=== PATIENT | male | born 1960 | race Caucasian/White ===

== ENCOUNTER → 2018-07-01 14:35 | Outpatient (CLI) | payer BC, SELFPAY ==
--- NOTE | 2018-07-01 14:40 | DI.US.S_ITS ---
PROCEDURE: US ABDOMEN LIMITED INDICATIONS: abdominal mass TECHNIQUE: Real-time focused scanning was performed of the abdomen, with image documentation. COMPARISON: None. FINDINGS: There is a large right inguinal hernia identified that contains peristalsing bowel. The hernia sac measures at least 6.4 x 3.7 x 2.2 cm with an opening of approximately 9-10 mm. IMPRESSION: Large right inguinal hernia containing bowel. Dictated by: Axel Montano M.D. on 07/01/2018 at 15:00 Approved by: Axel Montano M.D. on 07/01/2018 at 15:01
== END ==
PROVIDERS: PCP Family Medicine; Visit Provider Physician Assistant
DX: K40.90 Unilateral inguinal hernia, without obstruction or gangrene, not specified as recurrent (principal)
CPT/HCPCS: 76705

== ENCOUNTER 2018-07-07 06:45 | Day surgery (SDC) | payer BC, SELFPAY ==
[2018-07-03 12:10] VITALS: BMI 25.7
[2018-07-07] VITALS (7 sets, daily range): BP systolic 104–139; BP diastolic 66–92; PULSE 84–93; RESP 14–20; TEMP 36.4–37; O2SAT 98–100; BMI 25.7
[2018-07-07] MEDS: LACTATED RINGERS 1,000 ML 42 ML IV (07:10)
--- NOTE | 2018-07-07 08:13 | PM.PREOP ---
Pre-operative Note Interval Note History & Physical reviewed/Exam performed by Physician: Yes Changes to H&P: No H&P completed within 30 days and has changed as indicated here:: Patient seen and examined in the preoperative area. Surgical site marked accordingly. No changes in recent history and physical examination done within the last 30 days. Proceed today with hernia repair as planned.
[2018-07-07] MEDS: CEFAZOLIN 2 GM/100 ML FROZ.PIGGY IV (09:20)
--- NOTE | 2018-07-07 09:55 | SUR.OPER ---
Supine on padded OR bed, head on pillow, arms secured on padded arm boards at <90 degrees abduction, legs uncrossed, safety belt at thigh, tape over blanket over lower legs.
[2018-07-07] MEDS: BUPIVACAINE 0.5% (PF) VIAL 30 ML INJ (10:00)
[2018-07-07] MEDS: LIDOCAINE 1% W/EPI INJ 20 ML INJ (10:00)
[2018-07-07] MEDS: SODIUM CHLORIDE IRRIG SOLUTION 1,000 ML, CEFAZOLIN VIAL 1 GM IRR (10:26)
--- NOTE | 2018-07-07 11:21 | PM.OP.1 ---
Operative Date/Time/Diagnoses Date of procedure: 07/07/18 Time of procedure: 11:21 Pre-op diagnosis: Symptomatic right inguinal hernia Post-op diagnosis: other (Symptomatic indirect right inguinal hernia with lipoma of the cord and small noncommunicating hydrocele) Procedure & Clinicians Procedure: Open right inguinal hernia repair with mesh Same procedure as scheduled: Yes Indications: 57-year-old male who presented with symptomatic painful right inguinal mass. Examination and evaluation were consistent with hernia. Repair was recommended. Surgeon: Familia Anguiano Click Yes if Unassisted: Yes Anesthesia Type: General Operative Notes Findings: 1. Lipoma of the right inguinal cord 2. Indirect right inguinal hernia with noncommunicating hydrocele Closure Type: primary Specimen(s): none sent Implants & Drains: None Estimated Blood Loss (mL): 10 Blood products transfused: none Procedure in detail: After obtaining informed consent the patient was brought to the operating room and placed supine on the table. After satisfactory induction of anesthesia the abdomen and genitalia were prepped and draped in usual sterile fashion. SCOAP time out was performed per standard protocol. Transverse incision was created across the lower aspect of the right inguinal canal for distance of approximately 3 or 4 cm then infiltrated with a 1-1 mixture 1% lidocaine with 1 :100,000 epinephrine 0.5% plain Marcaine for postoperative analgesia. Skin incision was created with a 10 scalpel blade followed by the Bovie for hemostasis. Dissection was carried down with electrocautery to the level of the external oblique fascia. Exposure was obtained with a Weitlaner retractor. External oblique fascia was divided in the direction of its fibers with 15 scalp blade followed by Metzenbaum scissors to the level of the external inguinal ring. Edges of the fascia were secured with hemostats and blunt dissection encircled the spermatic cord. Cord was then encircled with the surgeon's fingers followed by Estela drain. The ileopubic tract, conjoined tendon, and rectus fascia were identified. Spermatic cord structures were skeletonized meticulously using a combination of blunt and sharp dissection to expose the hernia sac and lipoma is as above. Hernia sac was somewhat adherent to the vas deferens and adjacent cord structures but was eventually liberated and reduced back into the abdominal cavity along with the lipoma. No direct defect was identified. A small piece of polypropylene Pro Loop mesh plug and patch were brought onto the field and soaked in Ancef solution. Plug was placed into the internal inguinal ring and secured with individual interrupted 2 0 Vicryl suture to prevent migration. Onlay patch was brought onto the operative field and placed over the floor the inguinal canal. Patch was secured circumferentially with interrupted 0 Tycron suture. Laterally the mesh was secured to the ileal pubic tract well anteriorly was secured to the conjoined tendon. Medially the mesh was secured to the rectus fascia. Tails of the mesh were brought around the spermatic cord and trimmed to appropriate size. Tails were then placed deep to the external oblique fascia where they were secured with a single 0 Tycron suture. Examination revealed the cord structure to be in good position with no undue strangulation adjacent to the mesh. Wound was irrigated with copious amount sterile saline solution and hemostasis was verified. External oblique fascia was closed over the cord using running 2 0 Vicryl suture. Subcutaneous tissue was reapproximated with interrupted 3 0 Vicryl suture. Skin was closed in a running subcuticular fashion with 4 0 Monocryl suture. Dermal adhesive was applied. At the conclusion of the case the testicles were noted to be in good descended position without evidence of abnormality. Anesthesia was reversed and patient extubated in the operating room. He was taken recovery stable condition. Complications: none Condition: stable Disposition: PACU Plan for aftercare: 1. Discharge home 2. Follow up in surgery Clinic in 2 weeks
== END 2018-07-07 14:20 | disposition home or self-care (01) ==
PROVIDERS: PCP Family Medicine; Visit Provider Surgery
PROC: (CPT 49505; principal; 2018-07-07 07:45)
DX: K40.90 Unilateral inguinal hernia, without obstruction or gangrene, not specified as recurrent (principal); N43.3 Hydrocele, unspecified; D17.6 Benign lipomatous neoplasm of spermatic cord
CPT/HCPCS: 49505; C1781; J0690; J1100; J1885; J2250; J2405; J2704; J3010

== ENCOUNTER → 2018-09-15 13:33 | Outpatient (CLI) | payer BC, SELFPAY ==
[2018-09-15 14:15] LABS: Add Manual Diff / Slide Review NO; Basophils Absolute Auto 0 /uL (0-100); Basophils Percent Auto 0.8 % (0-2); Eosinophils Absolute Auto 100 /uL (0-450); Hematocrit 47.9 % (41-53); Hemoglobin 16.1 g/dL (13.5-17.5); Lymphocytes Absolute Auto 1300 /uL (1100-4500); Lymphocytes Percent Auto 23.2 % (25-40); Mean Corpuscular HGB Conc 33.7 % (30-36); Mean Corpuscular Hemoglobin 31.5 PG (26-34); Mean Corpuscular Volume 93.6 fL (80-100); Monocytes Absolute Auto 600 /uL (0-900); Monocytes Percent Auto 10.8 % (3-14); Neutrophils Absolute Auto 3700 /uL (1500-7000); Neutrophils Percent Auto 64.2 % (50-75); Platelet Count 267 X10^3/uL (150-400); Red Blood Cell Count 5.11 X10^6/uL (4.5-5.9); Red Cell Distribution Width 12.8 % (11.6-14.8); White Blood Cell Count 5.7 X10^3/uL (4.5-11.0)
[2018-09-15 14:33] LABS: Alanine Aminotransferase 41 IU/L (21-72); Albumin 4.7 g/dL (3.5-5.0); Albumin Globulin Ratio 1.6 (1.0-2.8); Alkaline Phosphatase 90 U/L (38-126); Aspartate Aminotransferase 27 IU/L (17-59); Blood Urea Nitrogen 22 mg/dL (9-20); Calcium 9.3 mg/dL (8.4-10.2); Carbon Dioxide 26 mmol/L (22-32); Chloride 104 mmol/L (98-107); Cholesterol 176 mg/dL (140-199); Estimated Glomerular Filt Rate > 60.0 mL/min (>60); Globulin 2.9 g/dL (1.7-4.1); Glucose 86 mg/dL (80-110); HDL Cholesterol 68 mg/dL (40-60); HEMOLYSIS < 15 (0-50); LDL Cholesterol Calculated 99 mg/dL (<100); Potassium 3.8 mmol/L (3.4-5.1); Sodium 140 mmol/L (137-145); Total Protein 7.6 g/dL (6.3-8.2); Triglycerides 44 mg/dL (35-150)
[2018-09-15 15:05] LABS: Prostate Specific Antigen 0.832 ng/mL (0.10-4.00)
[2018-09-15 17:41] LABS: Thyroid Stimulating Hormone 0.42 uIU/mL (0.47-4.68)
== END ==
PROVIDERS: PCP Family Medicine; Visit Provider Family Medicine
DX: R89.9 Unspecified abnormal finding in specimens from other organs, systems and tissues (principal); Z12.5 Encounter for screening for malignant neoplasm of prostate; Z13.0 Encounter for screening for diseases of the blood and blood-forming organs and certain disorders involving the immune mechanism; Z13.1 Encounter for screening for diabetes mellitus; Z13.220 Encounter for screening for lipoid disorders; Z13.29 Encounter for screening for other suspected endocrine disorder
CPT/HCPCS: 36415; 80053; 80061; 84153; 84443; 85025

== ENCOUNTER 2022-08-26 13:53 | Emergency (ER) | payer BC, SELFPAY ==
[2022-08-26 14:03] VITALS: BP 135/90; PULSE 73; RESP 16; TEMP 36.6; O2SAT 99; BMI 28.1
[2022-08-26 16:58] VITALS: BP 140/85; PULSE 73; O2SAT 99
[2022-08-26 17:00] VITALS: BP 138/84; PULSE 65; O2SAT 99
[2022-08-26 17:30] VITALS: BP 117/71; PULSE 77; O2SAT 98
[2022-08-26 18:00] VITALS: BP 136/93; PULSE 70; O2SAT 100
[2022-08-26 18:11] LABS: Add Manual Diff / Slide Review NO; Basophils Absolute Auto 100 /uL (0-100); Basophils Percent Auto 0.8 % (0-2); Eosinophils Absolute Auto 0 /uL (0-450); Eosinophils Percent Auto 0.7 % (2-4); Hematocrit 48.2 % (41-53); Hemoglobin 16.4 g/dL (13.5-17.5); Lymphocytes Absolute Auto 1200 /uL (1100-4500); Lymphocytes Percent Auto 18.3 % (25-40); Mean Corpuscular HGB Conc 33.9 % (30-36); Mean Corpuscular Hemoglobin 31.7 PG (26-34); Mean Corpuscular Volume 93.4 fL (80-100); Monocytes Absolute Auto 700 /uL (0-900); Monocytes Percent Auto 9.9 % (3-14); Neutrophils Absolute Auto 4700 /uL (1500-7000); Neutrophils Percent Auto 70.3 % (50-75); Platelet Count 220 X10^3/uL (150-400); Red Blood Cell Count 5.16 X10^6/uL (4.5-5.9); Red Cell Distribution Width 13.1 % (11.6-14.8); White Blood Cell Count 6.6 X10^3/uL (4.5-11.0)
[2022-08-26 18:19] LABS: INR 1.1 (0.9-1.3); Prothrombin Time 12.5 SECONDS (10.1-12.7)
[2022-08-26 18:22] LABS: PTT Partial Thromboplastin Tim 33 SECONDS (26-36)
[2022-08-26 18:24] LABS: Alanine Aminotransferase 26 IU/L (<50); Albumin 4.4 g/dL (3.5-5.0); Albumin Globulin Ratio 1.3 (1.0-2.8); Alkaline Phosphatase 83 U/L (38-126); Aspartate Aminotransferase 22 IU/L (17-59); BUN Creatinine Ratio 15.6 (6-22); Bilirubin Total 1.1 mg/dL (0.2-1.3); Blood Urea Nitrogen 14 mg/dL (9-20); Calcium 8.9 mg/dL (8.4-10.2); Carbon Dioxide 26 mmol/L (22-32); Chloride 103 mmol/L (98-107); Estimated Glomerular Filt Rate > 60 mL/min (>60); Globulin 3.3 g/dL (1.7-4.1); Glucose 89 mg/dL (80-110); HEMOLYSIS 16 (0-50); Lactate (Lactic Acid) 1.1 mmol/L (0.7-2.1); Potassium 4.4 mmol/L (3.4-5.1); Sodium 137 mmol/L (137-145); Total Protein 7.7 g/dL (6.3-8.2)
[2022-08-26] MEDS: PANTOPRAZOLE 40 MG VIAL IV (18:25)
[2022-08-26 18:30] VITALS: BP 115/81; PULSE 67; O2SAT 98
--- NOTE | 2022-08-26 19:22 | ED.ABDPAIN ---
HPI - Abdominal Pain General Chief Complaint: Abdominal Pain Stated Complaint: Black stool x 1 month Time Seen by Provider: 08/26/22 17:50 Mode of arrival: Family Vehicle History of Present Illness HPI narrative: Patient is a 62 year male without past medical history presenting today with 1 month of ongoing diarrhea. He says every time he eats or drinks he has ?squirts? of diarrhea. Small mucousy amounts. At some point he did have Pepto-Bismol he reports that his stool was black but now it seems be getting better. He is no abdominal pain he has no nausea or vomiting and fever chills. He is not been on antibiotics he is not traveled anywhere. He is not dizzy or lightheaded. He is able to eat and drink without any difficulty. He went to the walk-in clinic rectal was done and he was guaiac negative sent to the ED for further workup for ongoing diarrhea. Related Data Home Medications Medication Instructions Recorded Confirmed No Known Home Medications 08/22/22 08/22/22 Allergies Allergy/AdvReac Type Severity Reaction Status Date / Time No Known Drug Allergies Allergy Verified 08/26/22 14:05 Review of Systems Review of Systems ROS Unobtainable: All systems reviewed & are unremarkable except as noted in HPI and below Patient History Medical History No significant past medical history Right inguinal hernia Surgical History History of back surgery (~1992) History of repair of ACL (~1998) Social History marital status: household members: spouse occupational status: previously employed Smoking Status: Never smoker alcohol intake: current substance use type: does not use Smoking Status: Never smoker Substance Use Type: marijuana Exam Initial Vital Signs Initial Vital Signs: Vital Signs Temperature 97.9 F 08/26/22 14:03 Pulse Rate 73 08/26/22 14:03 Respiratory Rate 16 08/26/22 14:03 Blood Pressure 135/90 08/26/22 14:03 Pulse Oximetry 99 08/26/22 14:03 Oxygen Delivery Method Room Air 08/26/22 14:03 GENERAL: Alert well-appearing 62-year-old male and in no acute distress. HEENT: Head atraumatic,EOMI, pupils reactive, face symmetric, moist mucous membranes CARDIOVASCULAR: Regular rate and rhythm without murmurs, rubs or gallops. RESPIRATORY: Breath sounds equal bilaterally, no wheezes rales or rhonchi. ABDOMEN: Soft, nontender. Normoactive bowel sounds all 4 quadrants. No guarding or rebound. EXTREMITIES: Normal range of motion, no clubbing or edema. Neurovascularly intact NEUROLOGICAL: Alert and oriented x4. SKIN: Warm, dry, no laceration, no petechiae, no rashes or lesions. Course Orders Ordered: ED Orders 08/26/22 19:50 GI Panel (Film Array) Stat 08/26/22 19:52 Urine Microscopic Stat Discontinued Medications Pantoprazole Sodium (Pantoprazole 40 Mg Vial) 40 mg IV NOW ONE Stop: 08/26/22 17:51 Last Admin: 08/26/22 18:25 Dose: 40 mg Documented By: ROSANNA Vital Signs Vital signs: Vital Signs - 8 hr 08/26/22 14:03 08/26/22 16:58 08/26/22 16:58 Temperature 97.9 F Pulse Rate 73 73 Respiratory Rate 16 Blood Pressure 135/90 140/85 Pulse Oximetry 99 99 Oxygen Delivery Method Room Air 08/26/22 17:00 08/26/22 17:00 08/26/22 17:30 Temperature Pulse Rate 65 Respiratory Rate Blood Pressure 138/84 117/71 Pulse Oximetry 99 Oxygen Delivery Method 08/26/22 17:30 08/26/22 18:00 08/26/22 18:00 Temperature Pulse Rate 77 70 Respiratory Rate Blood Pressure 136/93 H Pulse Oximetry 98 100 Oxygen Delivery Method 08/26/22 18:30 08/26/22 18:30 Temperature Pulse Rate 67 Respiratory Rate Blood Pressure 115/81 Pulse Oximetry 98 Oxygen Delivery Method MDM - Abdominal Pain Lab Data 08/26/22 18:00 08/26/22 18:00 Labs: Lab Results 08/26/22 08/26/22 08/26/22 Range/Units 18:00 18:00 18:00 WBC 6.6 (4.5-11.0) X10^3/uL RBC 5.16 (4.5-5.9) X10^6/uL Hgb 16.4 (13.5-17.5) g/dL Hct 48.2 (41-53) % MCV 93.4 (80-100) fL MCH 31.7 (26-34) PG MCHC 33.9 (30-36) % RDW 13.1 (11.6-14.8) % Plt Count 220 (150-400) X10^3/uL Neut % (Auto) 70.3 (50-75) % Lymph % (Auto) 18.3 L (25-40) % [place] % (Auto) 9.9 (3-14) % Eos % (Auto) 0.7 L (2-4) % Baso % (Auto) 0.8 (0-2) % Neut # (Auto) 4700 (2485-3022) /uL Lymph # (Auto) 1200 (0314-3417) /uL [place] # (Auto) 700 (0-900) /uL Eos # (Auto) 0 (0-450) /uL Baso # (Auto) 100 (0-100) /uL PT 12.5 (10.1-12.7) SECONDS INR 1.1 (0.9-1.3) APTT 33 (26-36) SECONDS Sodium 137 (137-145) mmol/L Potassium 4.4 (3.4-5.1) mmol/L Chloride 103 (98-107) mmol/L Carbon Dioxide 26 (22-32) mmol/L BUN 14 (9-20) mg/dL Creatinine 0.90 (0.66-1.25) mg/dL Estimated GFR > 60 (>60) mL/min BUN/Creatinine Ratio 15.6 (6-22) Glucose 89 (80-110) mg/dL Lactate (0.7-2.1) mmol/L Calcium 8.9 (8.4-10.2) mg/dL Total Bilirubin 1.1 (0.2-1.3) mg/dL AST 22 (17-59) IU/L ALT 26 (<50) IU/L Alkaline Phosphatase 83 (38-126) U/L Total Protein 7.7 (6.3-8.2) g/dL Albumin 4.4 (3.5-5.0) g/dL Globulin 3.3 (1.7-4.1) g/dL Albumin/Globulin Ratio 1.3 (1.0-2.8) Urine RBC (0-5/HPF) Urine WBC (0-5/HPF) Urine Bacteria (None) Ur Culture Indicated? Stl C. cayetanensis PCR (Not Detect) Stool Rotavirus (PCR) (Not Detect) Stool Adenovirus (PCR) (Not Detect) Stool Astrovirus (PCR) (Not Detect) Stool Cryptosporidium PCR (Not Detect) Stl E.coli Shiga Tox PCR (Not Detect) St Sh/Enteroin Ecoli PCR (Not Detect) Stool E coli O157 PCR Stl Enterotoxigenic E PCR (Not Detect) Stool EPEC (PCR) (Not Detect) Stl E. histolytica PCR (Not Detect) Stool Giardia Lamblia PCR (Not Detect) Stool Sapovirus (PCR) (Not Detect) Stl P. shigelloides PCR (Not Detect) St Y.enterocolitica PCR (Not Detect) Stool Vibrio (PCR) (Not Detect) Stl Vibrio cholerae PCR (Not Detect) Stl Enteroaggr Ecoli PCR (Not Detect) Stl Norovirus GI/GII PCR (Not Detect) Campylobacter (PCR) (Not Detect) C. difficile Tox (PCR) (Not Detect) Salmonella (PCR) (Not Detect) 08/26/22 08/26/22 08/26/22 Range/Units 18:00 19:50 19:52 WBC (4.5-11.0) X10^3/uL RBC (4.5-5.9) X10^6/uL Hgb (13.5-17.5) g/dL Hct (41-53) % MCV (80-100) fL MCH (26-34) PG MCHC (30-36) % RDW (11.6-14.8) % Plt Count (150-400) X10^3/uL Neut % (Auto) (50-75) % Lymph % (Auto) (25-40) % [place] % (Auto) (3-14) % Eos % (Auto) (2-4) % Baso % (Auto) (0-2) % Neut # (Auto) (0072-2230) /uL Lymph # (Auto) (1109-1866) /uL [place] # (Auto) (0-900) /uL Eos # (Auto) (0-450) /uL Baso # (Auto) (0-100) /uL PT (10.1-12.7) SECONDS INR (0.9-1.3) APTT (26-36) SECONDS Sodium (137-145) mmol/L Potassium (3.4-5.1) mmol/L Chloride (98-107) mmol/L Carbon Dioxide (22-32) mmol/L BUN (9-20) mg/dL Creatinine (0.66-1.25) mg/dL Estimated GFR (>60) mL/min BUN/Creatinine Ratio (6-22) Glucose (80-110) mg/dL Lactate 1.1 (0.7-2.1) mmol/L Calcium (8.4-10.2) mg/dL Total Bilirubin (0.2-1.3) mg/dL AST (17-59) IU/L ALT (<50) IU/L Alkaline Phosphatase (38-126) U/L Total Protein (6.3-8.2) g/dL Albumin (3.5-5.0) g/dL Globulin (1.7-4.1) g/dL Albumin/Globulin Ratio (1.0-2.8) Urine RBC 5-10/hpf H (0-5/HPF) Urine WBC 0-1/hpf (0-5/HPF) Urine Bacteria None seen (None) Ur Culture Indicated? Cult not indicated Stl C. cayetanensis PCR Not detected (Not Detect) Stool Rotavirus (PCR) Not detected (Not Detect) Stool Adenovirus (PCR) Not detected (Not Detect) Stool Astrovirus (PCR) Not detected (Not Detect) Stool Cryptosporidium PCR Not detected (Not Detect) Stl E.coli Shiga Tox PCR Not detected (Not Detect) St Sh/Enteroin Ecoli PCR Not detected (Not Detect) Stool E coli O157 PCR Not Reportable Stl Enterotoxigenic E PCR Not detected (Not Detect) Stool EPEC (PCR) Not detected (Not Detect) Stl E. histolytica PCR Not detected (Not Detect) Stool Giardia Lamblia PCR Not detected (Not Detect) Stool Sapovirus (PCR) Not detected (Not Detect) Stl P. shigelloides PCR Not detected (Not Detect) St Y.enterocolitica PCR Not detected (Not Detect) Stool Vibrio (PCR) Not detected (Not Detect) Stl Vibrio cholerae PCR Not detected (Not Detect) Stl Enteroaggr Ecoli PCR Not detected (Not Detect) Stl Norovirus GI/GII PCR Not detected (Not Detect) Campylobacter (PCR) Not detected (Not Detect) C. difficile Tox (PCR) Not detected (Not Detect) Salmonella (PCR) Not detected (Not Detect) MDM Narrative Medical decision making narrative: Patient is a 62-year-old male who is had ongoing diarrhea for over a month. It is very sensitive to food and water intake. No fever or chills. Blood work is overall reassuring hemoglobin hematocrit are stable. He took Pepto-Bismol I think likely causing his stools to be black. He was guaiac negative at walk-in clinic. Abdomen remains soft vitals are stable at this time I see no need for imaging. Was able to give us a stool sample I will call him with results. GI panel is negative. I called and updated patient. No need for antibiotics recommended a colonoscopy and follow-up with the PCP. Discharge Plan Departure Patient Disposition: Home Clinical Impression: Gastroenteritis Instructions: DI for Viral Gastroenteritis -- Adult Activity Restrictions/Additional Instructions: *You have been diagnosed with gastroenteritis *What to do: I will call you with results of your stool sample tonight and about 3 hours (11pm) Pepto-Bismol will make her stool black *Continue to take medications as directed You may take Imodium as directed if needed *Follow up with your primary care provider in 2-3 days or call [phone] *Return to ER if you should have worsening diarrhea inability keep things down dizziness lightheadedness worsening abdominal pain or any new, worsening or concerning symptoms Prescriptions: No Action No Known Home Medications Referrals: Francisco Manzo MD [Primary Care Provider] - Stand Alone Forms: Patient Portal/API
[2022-08-26 20:23] LABS: Bacteria Urine None Seen; Culture Indicated Urine Cult Not Indicated; RBC Urine 5-10/HPF (0-5/HPF); WBC Urine 0-1/HPF (0-5/HPF)
[2022-08-26 21:23] LABS: Adenovirus F 40/41 Not Detected (Not Detect); Astrovirus Not Detected (Not Detect); Campylobacter Not Detected (Not Detect); Clostridium difficile toxin AB Not Detected (Not Detect); Cryptosporidium Not Detected (Not Detect); Cyclospora cayetanensis Not Detected (Not Detect); Entamoeba histolytica Not Detected (Not Detect); Enteroaggregative E.coli Not Detected (Not Detect); Enteropathogenic E.coli Not Detected (Not Detect); Enterotoxigenic E.coli It/st Not Detected (Not Detect); Giardia lamblia Not Detected (Not Detect); Norovirus GI/GII Not Detected (Not Detect); Plesiomonsa shigelloides Not Detected (Not Detect); Rotavirus A Not Detected (Not Detect); Salmonella Not Detected (Not Detect); Sapovirus Not Detected (Not Detect); Shiga-like toxin-prod E.coli Not Detected (Not Detect); Shigella/Enteroinvasive E.coli Not Detected (Not Detect); Vibrio Not Detected (Not Detect); Vibrio cholerae Not Detected (Not Detect); Yersinia enterocolitica Not Detected (Not Detect)
== END 2022-08-26 20:13 | disposition home or self-care (01) ==
PROVIDERS: Emergency Provider Emergency Medicine; PCP Family Medicine
DX: K52.9 Noninfective gastroenteritis and colitis, unspecified (principal)
CPT/HCPCS: 36415; 80053; 81015; 83605; 85025; 85610; 85730; 87507; 96374; 99284; C9113

== ENCOUNTER → 2022-09-25 11:25 | Outpatient (CLI) | payer BC, SELFPAY ==
--- NOTE | 2022-09-25 11:28 | DI.CT.S_ITS ---
PROCEDURE: CT ABDOMEN PELVIS W CON INDICATIONS: Change in bowel habits TECHNIQUE: After the administration of oral and intravenous contrast, axial sections were acquired from the lung bases to the pubic symphysis. Coronal and sagittal reformats were performed. For radiation dose reduction, the following was used: automated exposure control, adjustment of mA and/or kV according to patient size. COMPARISON:None. FINDINGS: Image quality: Excellent. Lung bases: Unremarkable. Heart: No significant findings. ABDOMEN: Liver: Probable 2.5 cm hemangioma in segment 6/8. Gallbladder: Unremarkable. Biliary ducts: Unremarkable. Pancreas: Unremarkable. Spleen: Unremarkable. Adrenal Glands: Unremarkable. Kidneys and Ureters: Mild bilateral hydronephrosis. Stomach and Bowel: There is diffuse mid to upper rectal wall thickening with associated luminal narrowing. No definite mesorectal adenopathy. Moderate upstream colonic stool load. Peritoneum: No abnormal intraperitoneal fluid. No free air. Ventral Wall: Tiny umbilical hernia containing fat. Abdominal Nodes: No retroperitoneal or mesenteric adenopathy by size criteria. Vessels: Aorta and inferior vena cava are normal in size. PELVIS: Pelvic Organs: Unremarkable. Bladder: Posterior bladder wall thickening, with contour irregularity the bladder wall. Pelvic Nodes: No enlarged lymph nodes. Miscellaneous: Left inguinal hernia containing fat. Bones: Unremarkable. IMPRESSION: Diffuse rectal wall thickening, with associated luminal narrowing. In the setting of altered bowel habits (and upstream constipation), findings are highly concerning for malignancy. GI and oncology referral is recommended. Posterior bladder wall thickening, with associated hydronephrosis. Findings are highly concerning for cancer. Urology referral is recommended. No pelvic adenopathy. No retroperitoneal adenopathy. No definite evidence of metastatic disease. Dictated by: Isaiah Leon M.D. on 09/25/2022 at 14:37 Approved by: Isaiah Leon M.D. on 09/25/2022 at 14:47
== END ==
PROVIDERS: PCP Internal Medicine; Referring Provider Surgery; Visit Provider Surgery
DX: R19.4 Change in bowel habit (principal); N13.30 Unspecified hydronephrosis
CPT/HCPCS: 74177; Q9967

== ENCOUNTER 2022-10-03 13:53 | Day surgery (SDC) | payer BC, SELFPAY ==
--- NOTE | 2022-10-03 | PATH_ITS ---
[facility] Accession Number: [id number] No. of containers..03 Tissue . 01 Material submitted: . PART A: duodenum - DUODENUM BIOPSIES PART B: stomach - ANTRUM BIOPSIES PART C: rectum - RECTAL MASS BIOPSIES . 01 Diagnosis: A. Duodenum, Biopsies: Duodenal mucosa with no diagnostic abnormality. Negative for active inflammation, features of sprue, dysplasia, or malignancy. . B. Stomach, Antrum, Biopsies: Antral mucosa with mild chronic gastritis. Separate fragment of columnar mucosa with intestinal epithelium, see comment. Negative for Helicobacter by immunohistochemistry. Negative for dysplasia and malignancy. . C. Rectum, Mass, Biopsies: Hyperplastic rectal mucosa with mild activity and features consistent with mucosal prolapse. Negative for dysplasia and malignancy. [facility] 10/10/2022 1120 Local . 01 Comment: B. One fragment is of antral mucosa with mild chronic inflammation, negative for intestinal metaplasia. The second tissue fragment is of columnar epithelial mucosa with intestinalized epithelium and goblet cells, with focal oxyntic glands and mucus glands in the submucosa. The differential diagnosis for this benign tissue includes gastric mucosa with intestinal metaplasia (favored) or small bowel with peptic duodenitis and gastric heterotopia. Endoscopic correlation is required. . C. The clinical and radiologic concern for malignancy is noted. There is no histologic evidence of dysplasia or maligancy in the sections examined. As part of routine quality consultant, part C of this case was also reviewed by Dr. Marie who agrees with the interpretation. . 01 Electronically signed: . Oriana Morfin MD, Pathologist NPI- [id number] . 01 Gross description: . Part A: DUODENUM BIOPSIES: Received in formalin are 2 fragment(s) of looney, soft tissue measuring 0.2 x 0.2 x 0.2 cm to 0.3 x 0.2 x 0.2 cm submitted entirely in 1 cassette(s) Part B: ANTRUM BIOPSIES: Received in formalin are 2 fragment(s) of looney, soft tissue measuring 0.1 x 0.1 x 0.1 cm to 0.2 x 0.2 x 0.2 cm submitted entirely in 1 cassette(s) Part C: RECTAL MASS BIOPSIES: Received in formalin are multiple fragment(s) of looney, soft tissue measuring 0.1 x 0.1 x 0.1 cm to 0.3 x 0.2 x 0.2 cm submitted entirely in 1 cassette(s) /JUDY 10/07/2022 1937 Local . 01 Microscopic: . B. An immunohistochemical stain was performed to evaluate for Helicobacter organisms and is negative. The control stain showed appropriate reactivity. . C. Synaptophysin immunohistochemical stain was performed to characterize cells of interest and is negative. The control stain showed appropriate reactivity. . * This test was developed and its performance characteristics determined by [employer]. It has not been cleared or approved by the U.S. Food and Drug Administration. The FDA has determined that such clearance or approval is not necessary. This test is used for clinical purposes. It should not be regarded as investigational or for research. . 01 Pathologist provided ICD-10: R10.9 . 01 CPT . 779443, 303228, 359943, O00647 Specimen Comment: A courtesy copy of this report has been sent to [phone] Performed at: 01 [facility] [address] [place] [address], [place], [place] [id number] MD Parmjit Fox MD Phone: [phone]
[2022-10-03 14:26] VITALS: BMI 27.8
[2022-10-03 14:33] VITALS: BP 145/90; PULSE 74; RESP 21; TEMP 36.2; O2SAT 100
[2022-10-03] MEDS: LACTATED RINGERS 1,000 ML 42 ML IV (14:42)
--- NOTE | 2022-10-03 14:43 | SUR.PREOP ---
Dr. Miranda notified that patient drank around 16 oz water around 12:[address] moraay with proceeding with procedure. Dr. Caicedo notified that patient's stools are still brown after finishing bowel prep. Will still proceed with procedures. Tanisha Hicks RN
--- NOTE | 2022-10-03 15:26 | PM.PREOP ---
Pre-operative Note COVID-19 COVID-19 status: Not tested Interval Note History & Physical reviewed/Exam performed by Physician: Yes Changes to H&P: No ASA Class (for procedural sedation): II
--- NOTE | 2022-10-03 16:24 | PM.OP.EC ---
Operative Date/Time/Diagnoses Date of procedure: 10/03/22 Time of procedure: 16:24 Pre-op diagnosis: Change in bowel function Post-op diagnosis: same Procedure & Clinicians Study performed: EGD and colonoscopy Same procedure as scheduled: Yes Surgeon: Romeo Caicedo Procedure Notes Procedure in detail: Surgeon: Romeo Caicedo MD Anesthesia: Hortecnia Miranda DO Procedure in detail: A timeout was performed. A bite blocked was placed and monitors were attached to the patient. The patient was positioned in a left lateral decubitus position. Sedation was administered. Once the patient was sedated the endoscope was inserted through the bite block and passed through the esophagus and stomach and into the duodenum. Random biopsies were taken from the duodenum. We then withdrew the scope into the stomach. There was some mild antritis and random biopsies were taken from the antrum. The endoscope was retroflexed and a small hiatal hernia was observed. The endoscope was straightned and withdrawn into the esophagus. No other abnormalities were seen. Findings: Mild antritis Next we repositioned the patient for a colonoscopy. A digital rectal exam was performed. There was a firm, circumferential mass just above the dentate line. The colonoscope was inserted into the rectum and immediately circumferential cobblestone like thickening of the mid and rectum were observed. Above the abnormal tissue there was solid stool endoscope was not advanced beyond that point. Multiple biopsies were taken of the circumferential abnormal tissue with forceps. Multiple photographs were taken. The scope was not retroflexed in the rectum because of the mass extending to the dentate line. Findings: Abnormal cobblestone thickening of the mid and distal rectum to the dentate line EBL: 20 mL Scope withdrawal time: Not applicable Sedation minutes: 15 minutes Impression: Suspect rectal carcinoma, less likely ulcerative colitis Post-procedure Disposition: PACU
[2022-10-03 16:28] VITALS: BP 108/78; PULSE 79; RESP 16; TEMP 36.2; O2SAT 98
[2022-10-03 16:33] VITALS: BP 118/78; PULSE 67; RESP 16; O2SAT 99
[2022-10-03 16:38] VITALS: BP 136/91; PULSE 54; RESP 16; TEMP 36.8; O2SAT 100
[2022-10-03 16:45] VITALS: BP 133/72; PULSE 77; RESP 16; TEMP 36.8; O2SAT 98
[2022-10-03 17:06] LABS: Add Manual Diff / Slide Review NO; Basophils Absolute Auto 0 /uL (0-100); Basophils Percent Auto 0.7 % (0-2); Eosinophils Absolute Auto 100 /uL (0-450); Hematocrit 42.3 % (41-53); Hemoglobin 14.4 g/dL (13.5-17.5); Lymphocytes Absolute Auto 800 /uL (1100-4500); Lymphocytes Percent Auto 13.6 % (25-40); Mean Corpuscular Hemoglobin 31.6 PG (26-34); Mean Corpuscular Volume 92.8 fL (80-100); Monocytes Absolute Auto 600 /uL (0-900); Monocytes Percent Auto 9.7 % (3-14); Neutrophils Absolute Auto 4500 /uL (1500-7000); Platelet Count 193 X10^3/uL (150-400); Red Blood Cell Count 4.55 X10^6/uL (4.5-5.9); Red Cell Distribution Width 13.2 % (11.6-14.8)
[2022-10-03 17:16] LABS: Alanine Aminotransferase 17 IU/L (<50); Albumin Globulin Ratio 1.5 (1.0-2.8); Alkaline Phosphatase 71 U/L (38-126); Aspartate Aminotransferase 22 IU/L (17-59); BUN Creatinine Ratio 15.4 (6-22); Bilirubin Total 1.1 mg/dL (0.2-1.3); Blood Urea Nitrogen 14 mg/dL (9-20); Calcium 8.4 mg/dL (8.4-10.2); Carbon Dioxide 28 mmol/L (22-32); Chloride 102 mmol/L (98-107); Estimated Glomerular Filt Rate > 60 mL/min (>60); Globulin 2.7 g/dL (1.7-4.1); Glucose 86 mg/dL (80-110); HEMOLYSIS < 15 (0-50); Sodium 138 mmol/L (137-145); Total Protein 6.7 g/dL (6.3-8.2)
== END 2022-10-03 17:02 | disposition home or self-care (01) ==
PROVIDERS: PCP Internal Medicine; Referring Provider Surgery; Visit Provider Surgery
PROC: 0DJD8ZZ Inspection of Lower Intestinal Tract, Via Natural or Artificial Opening Endoscopic (ICD-10-PCS; CPT 45378; principal; 2022-10-03 14:45)
PROC: 0DJ08ZZ Inspection of Upper Intestinal Tract, Via Natural or Artificial Opening Endoscopic (ICD-10-PCS; CPT 43235; 2022-10-03 14:45)
DX: R19.4 Change in bowel habit (principal); K29.50 Unspecified chronic gastritis without bleeding; K44.9 Diaphragmatic hernia without obstruction or gangrene; Z53.09 Procedure and treatment not carried out because of other contraindication; K92.89 Other specified diseases of the digestive system
CPT/HCPCS: 45380; 43239; 80053; 82378; 85025; J2704

== ENCOUNTER → 2022-10-12 12:11 | Outpatient (CLI) | payer BC, SELFPAY ==
--- NOTE | 2022-10-12 12:12 | DI.MRI.S_ITS ---
PROCEDURE: MR PELVIS WO/W CON INDICATIONS: rectal thickening. Colonoscopy performed 10/03/2022. Pathology result from rectal mass biopsies of hyperplastic rectal mucosa with mild activity and features consistent with mucosal prolapse. Negative for dysplasia and malignancy. TECHNIQUE: Coronal HASTE, sagittal T2 FSE, axial T1 FSE, axial and coronal nonbreath-hold T2 FSE. Axial dynamic VIBE during administration of contrast. Post-contrast axial and coronal VIBE/2-D FLASH with fat saturation from the iliac crests to the symphysis. Optional diffusion weighted imaging and ADC may be performed. COMPARISON: [facility], CT, CT ABDOMEN PELVIS W CON, 09/25/2022, 13:41. FINDINGS: Rectum: Circumferential wall thickening, luminal narrowing, and enhancement of the rectum is present beginning approximately 4.3 cm above the anal verge, for a segmental length of approximately 7 cm. There is edema within the mesorectal fat as seen on the recent CT. Pelvic organs: Asymmetric thickening of the posterior wall of the urinary bladder with associated bilateral hydroureter. Lymph nodes: No definite suspicious lymph nodes identified within the field of view. Other bowel and peritoneum: The colon upstream to the segment of rectal wall thickening is mildly prominent in caliber containing stool, not significantly changed since the recent CT. Imaged small bowel is nondilated. No substantial peritoneal free fluid within the field of view, trace amount present within the left inguinal hernia described below. Bones/soft tissues: Marrow is unremarkable in overall signal. Small left inguinal hernia containing fat and trace amount of free fluid. IMPRESSION: 1. Redemonstrated segment of nonspecific rectal wall thickening similar in extent to the recent CT of the abdomen and pelvis. Note is made of pathology results from rectal biopsy negative for malignancy. There is often significant overlap in the imaging appearance of rectal neoplasm and inflammation and the presence of rectal neoplasm cannot be confirmed or excluded on this study. This examination/protocol is best performed for staging of known rectal cancer. If there is persistent clinical suspicion for rectal cancer, repeat biopsy may be helpful. If rectal neoplasm is confirmed on future repeat biopsy, a repeat MRI of the pelvis, rectal cancer staging protocol, may be helpful for staging at that time. 2. Redemonstrated asymmetric thickening of the posterior wall of urinary bladder with associated bilateral hydroureter. Findings raise the possibility of urothelial neoplasm. Urology consultation may be helpful to direct further management. Dictated by: Nathan Palma M.D. on 10/14/2022 at 14:50 Approved by: Nathan Palma M.D. on 10/14/2022 at 15:27
== END ==
PROVIDERS: PCP Internal Medicine; Referring Provider Surgery; Visit Provider Surgery
DX: N13.4 Hydroureter (principal); K40.90 Unilateral inguinal hernia, without obstruction or gangrene, not specified as recurrent; R19.4 Change in bowel habit
CPT/HCPCS: 72197; A9579

== ENCOUNTER → 2023-01-06 12:25 | Outpatient (CLI) | payer BC, SELFPAY | PROVIDERS: PCP Internal Medicine; Referring Provider Surgery; Visit Provider Surgery | DX: R19.4 Change in bowel habit (principal) | CPT/HCPCS: 36415; 82378 ==

== ENCOUNTER → 2023-03-12 15:04 | Outpatient (ROUT) | payer BC, SELFPAY ==
[2023-03-12 15:16] LABS: Add Manual Diff / Slide Review NO; Basophils Absolute Auto 0 /uL (0-100); Basophils Percent Auto 0.3 % (0-2); Eosinophils Absolute Auto 0 /uL (0-450); Eosinophils Percent Auto 0.3 % (2-4); Hematocrit 42.8 % (41-53); Lymphocytes Absolute Auto 1600 /uL (1100-4500); Lymphocytes Percent Auto 14.4 % (25-40); Mean Corpuscular Hemoglobin 32.4 PG (26-34); Mean Corpuscular Volume 92.6 fL (80-100); Monocytes Absolute Auto 1700 /uL (0-900); Monocytes Percent Auto 15.3 % (3-14); Neutrophils Absolute Auto 7600 /uL (1500-7000); Neutrophils Percent Auto 69.7 % (50-75); Platelet Count 321 X10^3/uL (150-400); Red Blood Cell Count 4.62 X10^6/uL (4.5-5.9); Red Cell Distribution Width 14.6 % (11.6-14.8); White Blood Cell Count 10.9 X10^3/uL (4.5-11.0)
[2023-03-12 15:24] LABS: Alanine Aminotransferase 77 IU/L (<50); Albumin 4.8 g/dL (3.5-5.0); Albumin Globulin Ratio 1.2 (1.0-2.8); Alkaline Phosphatase 194 U/L (38-126); Aspartate Aminotransferase 46 IU/L (17-59); BUN Creatinine Ratio 60.9 (6-22); Bilirubin Total 1.8 mg/dL (0.2-1.3); Blood Urea Nitrogen 103 mg/dL (9-20); Calcium 10.3 mg/dL (8.4-10.2); Carbon Dioxide 39 mmol/L (22-32); Chloride 79 mmol/L (98-107); Estimated Glomerular Filt Rate 45 mL/min (>60); Globulin 4.1 g/dL (1.7-4.1); Glucose 102 mg/dL (80-110); HEMOLYSIS < 15 (0-50); Magnesium 2.7 mg/dL (1.6-2.3); Phosphorous 3.5 mg/dL (2.3-3.7); Potassium 4.1 mmol/L (3.4-5.1); Sodium 132 mmol/L (137-145); Total Protein 8.9 g/dL (6.3-8.2)
== END ==
PROVIDERS: PCP Internal Medicine; Visit Provider Internal Medicine
DX: K31.1 Adult hypertrophic pyloric stenosis (principal)
CPT/HCPCS: 80053; 83735; 84100; 85025

== ENCOUNTER → 2023-06-10 18:53 | Outpatient (ROUT) | payer BC, SELFPAY ==
[2023-06-10 19:04] LABS: Add Manual Diff / Slide Review NO; Basophils Absolute Auto 0 /uL (0-100); Basophils Percent Auto 0.5 % (0-2); Eosinophils Absolute Auto 100 /uL (0-450); Eosinophils Percent Auto 1.5 % (2-4); Hematocrit 23.3 % (41-53); Hemoglobin 7.9 g/dL (13.5-17.5); Lymphocytes Absolute Auto 1100 /uL (1100-4500); Lymphocytes Percent Auto 14.8 % (25-40); Mean Corpuscular Hemoglobin 30.8 PG (26-34); Mean Corpuscular Volume 90.5 fL (80-100); Monocytes Absolute Auto 800 /uL (0-900); Neutrophils Absolute Auto 5200 /uL (1500-7000); Neutrophils Percent Auto 72.2 % (50-75); Platelet Count 317 X10^3/uL (150-400); Red Blood Cell Count 2.57 X10^6/uL (4.5-5.9); Red Cell Distribution Width 18.4 % (11.6-14.8); White Blood Cell Count 7.2 X10^3/uL (4.5-11.0)
[2023-06-10 19:09] LABS: HEMOLYSIS 29 (0-50)
[2023-06-10 19:14] LABS: Alanine Aminotransferase 75 IU/L (<50); Albumin 3.4 g/dL (3.5-5.0); Albumin Globulin Ratio 0.8 (1.0-2.8); Alkaline Phosphatase 326 U/L (38-126); Aspartate Aminotransferase 57 IU/L (17-59); BUN Creatinine Ratio 51.8 (6-22); Bilirubin Total 1.4 mg/dL (0.2-1.3); Blood Urea Nitrogen 59 mg/dL (9-20); Calcium 9.3 mg/dL (8.4-10.2); Carbon Dioxide 19 mmol/L (22-32); Chloride 97 mmol/L (98-107); Estimated Glomerular Filt Rate > 60 mL/min (>60); Globulin 4.2 g/dL (1.7-4.1); Glucose 88 mg/dL (80-110); Magnesium 1.8 mg/dL (1.6-2.3); Potassium 4.1 mmol/L (3.4-5.1); Sodium 129 mmol/L (137-145); Total Protein 7.6 g/dL (6.3-8.2); Triglycerides 112 mg/dL (35-150)
[2023-06-10 19:43] LABS: C-Reactive Protein Quant 1.6 mg/dL (<1.0)
[2023-06-10 19:47] LABS: Prealbumin 31.8 mg/dL (17.6-36.0)
[2023-06-11 03:22] LABS: Phosphorous 3.7 mg/dL (2.3-3.7)
== END ==
PROVIDERS: PCP Internal Medicine; Visit Provider Internal Medicine
DX: K31.1 Adult hypertrophic pyloric stenosis (principal); K31.5 Obstruction of duodenum; D49.4 Neoplasm of unspecified behavior of bladder
CPT/HCPCS: 80053; 83735; 84100; 84134; 84478; 85025; 86140

== ENCOUNTER → 2023-06-17 20:04 | Outpatient (ROUT) | payer BC, SELFPAY ==
[2023-06-17 20:16] LABS: Add Manual Diff / Slide Review NO; Basophils Absolute Auto 100 /uL (0-100); Basophils Percent Auto 0.6 % (0-2); Eosinophils Absolute Auto 100 /uL (0-450); Eosinophils Percent Auto 1.1 % (2-4); Hemoglobin 9.4 g/dL (13.5-17.5); Lymphocytes Absolute Auto 1100 /uL (1100-4500); Lymphocytes Percent Auto 11.8 % (25-40); Mean Corpuscular HGB Conc 33.5 % (30-36); Mean Corpuscular Hemoglobin 30.5 PG (26-34); Mean Corpuscular Volume 90.9 fL (80-100); Monocytes Absolute Auto 800 /uL (0-900); Monocytes Percent Auto 8.3 % (3-14); Neutrophils Absolute Auto 7500 /uL (1500-7000); Neutrophils Percent Auto 78.2 % (50-75); Platelet Count 381 X10^3/uL (150-400); Red Blood Cell Count 3.07 X10^6/uL (4.5-5.9); Red Cell Distribution Width 18.5 % (11.6-14.8); White Blood Cell Count 9.5 X10^3/uL (4.5-11.0)
[2023-06-17 20:27] LABS: Alanine Aminotransferase 37 IU/L (<50); Albumin 3.6 g/dL (3.5-5.0); Albumin Globulin Ratio 0.9 (1.0-2.8); Alkaline Phosphatase 248 U/L (38-126); BUN Creatinine Ratio 44.6 (6-22); Bilirubin Total 1.1 mg/dL (0.2-1.3); Blood Urea Nitrogen 50 mg/dL (9-20); C-Reactive Protein Quant 0.9 mg/dL (<1.0); Calcium 9.4 mg/dL (8.4-10.2); Carbon Dioxide 20 mmol/L (22-32); Chloride 96 mmol/L (98-107); Estimated Glomerular Filt Rate > 60 mL/min (>60); Globulin 4.2 g/dL (1.7-4.1); Glucose 102 mg/dL (80-110); HEMOLYSIS < 15 (0-50); Magnesium 1.9 mg/dL (1.6-2.3); Phosphorous 3.8 mg/dL (2.3-3.7); Potassium 4.8 mmol/L (3.4-5.1); Sodium 127 mmol/L (137-145); Total Protein 7.8 g/dL (6.3-8.2); Triglycerides 72 mg/dL (35-150)
[2023-06-17 20:32] LABS: Prealbumin 36.5 mg/dL (17.6-36.0)
[2023-06-20 16:07] LABS: Aspartate Aminotransferase 26 IU/L (17-59)
== END ==
PROVIDERS: PCP Internal Medicine; Visit Provider Internal Medicine
DX: K31.1 Adult hypertrophic pyloric stenosis (principal); K31.5 Obstruction of duodenum; D49.4 Neoplasm of unspecified behavior of bladder
CPT/HCPCS: 80053; 83735; 84100; 84134; 84478; 85025; 86140

== ENCOUNTER → 2023-06-30 17:27 | Outpatient (ROUT) | payer BC, SELFPAY ==
[2023-06-30 17:44] LABS: Add Manual Diff / Slide Review NO; Basophils Absolute Auto 0 /uL (0-100); Basophils Percent Auto 0.4 % (0-2); Eosinophils Absolute Auto 100 /uL (0-450); Eosinophils Percent Auto 1.8 % (2-4); Hematocrit 26.9 % (41-53); Hemoglobin 8.9 g/dL (13.5-17.5); Lymphocytes Absolute Auto 1100 /uL (1100-4500); Lymphocytes Percent Auto 15.7 % (25-40); Mean Corpuscular Hemoglobin 30.2 PG (26-34); Mean Corpuscular Volume 91.6 fL (80-100); Monocytes Absolute Auto 700 /uL (0-900); Monocytes Percent Auto 9.3 % (3-14); Neutrophils Absolute Auto 5300 /uL (1500-7000); Neutrophils Percent Auto 72.8 % (50-75); Platelet Count 238 X10^3/uL (150-400); Red Blood Cell Count 2.93 X10^6/uL (4.5-5.9); Red Cell Distribution Width 17.7 % (11.6-14.8); White Blood Cell Count 7.3 X10^3/uL (4.5-11.0)
[2023-06-30 18:14] LABS: Alanine Aminotransferase 18 IU/L (<50); Albumin 3.2 g/dL (3.5-5.0); Albumin Globulin Ratio 0.9 (1.0-2.8); Alkaline Phosphatase 129 U/L (38-126); Aspartate Aminotransferase 24 IU/L (17-59); BUN Creatinine Ratio 38.2 (6-22); Bilirubin Total 0.7 mg/dL (0.2-1.3); Blood Urea Nitrogen 34 mg/dL (9-20); Calcium 8.9 mg/dL (8.4-10.2); Carbon Dioxide 26 mmol/L (22-32); Chloride 97 mmol/L (98-107); Estimated Glomerular Filt Rate > 60 mL/min (>60); Globulin 3.4 g/dL (1.7-4.1); Glucose 84 mg/dL (80-110); HEMOLYSIS < 15 (0-50); Magnesium 1.5 mg/dL (1.6-2.3); Phosphorous 3.3 mg/dL (2.3-3.7); Potassium 4.1 mmol/L (3.4-5.1); Sodium 130 mmol/L (137-145); Total Protein 6.6 g/dL (6.3-8.2)
== END ==
PROVIDERS: PCP Internal Medicine; Visit Provider Internal Medicine
DX: K31.1 Adult hypertrophic pyloric stenosis (principal); K31.5 Obstruction of duodenum; D49.4 Neoplasm of unspecified behavior of bladder
CPT/HCPCS: 80053; 83735; 84100; 85025

== ENCOUNTER → 2023-07-14 16:36 | Outpatient (ROUT) | payer BC, SELFPAY ==
[2023-07-14 17:08] LABS: Add Manual Diff / Slide Review NO; Basophils Absolute Auto 100 /uL (0-100); Basophils Percent Auto 0.7 % (0-2); Eosinophils Absolute Auto 100 /uL (0-450); Eosinophils Percent Auto 1.5 % (2-4); Hematocrit 28.2 % (41-53); Hemoglobin 9.4 g/dL (13.5-17.5); Lymphocytes Absolute Auto 1300 /uL (1100-4500); Mean Corpuscular HGB Conc 33.4 % (30-36); Mean Corpuscular Hemoglobin 30.9 PG (26-34); Mean Corpuscular Volume 92.7 fL (80-100); Monocytes Absolute Auto 700 /uL (0-900); Monocytes Percent Auto 9.1 % (3-14); Neutrophils Absolute Auto 5700 /uL (1500-7000); Neutrophils Percent Auto 71.7 % (50-75); Platelet Count 301 X10^3/uL (150-400); Red Blood Cell Count 3.05 X10^6/uL (4.5-5.9); Red Cell Distribution Width 17.6 % (11.6-14.8); White Blood Cell Count 7.9 X10^3/uL (4.5-11.0)
[2023-07-14 17:21] LABS: Alanine Aminotransferase 32 IU/L (<50); Albumin 3.3 g/dL (3.5-5.0); Alkaline Phosphatase 134 U/L (38-126); Aspartate Aminotransferase 22 IU/L (17-59); BUN Creatinine Ratio 28.7 (6-22); Bilirubin Total 0.4 mg/dL (0.2-1.3); Blood Urea Nitrogen 27 mg/dL (9-20); Calcium 9.2 mg/dL (8.4-10.2); Carbon Dioxide 27 mmol/L (22-32); Chloride 102 mmol/L (98-107); Estimated Glomerular Filt Rate > 60 mL/min (>60); Globulin 3.4 g/dL (1.7-4.1); Glucose 89 mg/dL (80-110); HEMOLYSIS < 15 (0-50); Magnesium 1.9 mg/dL (1.6-2.3); Phosphorous 4.4 mg/dL (2.3-3.7); Potassium 4.4 mmol/L (3.4-5.1); Sodium 136 mmol/L (137-145); Total Protein 6.7 g/dL (6.3-8.2)
== END ==
PROVIDERS: PCP Internal Medicine; Visit Provider Internal Medicine
DX: K31.1 Adult hypertrophic pyloric stenosis (principal); K31.5 Obstruction of duodenum; D49.4 Neoplasm of unspecified behavior of bladder
CPT/HCPCS: 80053; 83735; 84100; 85025

== ENCOUNTER → 2023-07-28 17:05 | Outpatient (ROUT) | payer MEDICARE, SELFPAY ==
[2023-07-28 18:06] LABS: Add Manual Diff / Slide Review NO; Basophils Absolute Auto 0 /uL (0-100); Basophils Percent Auto 0.6 % (0-2); Eosinophils Absolute Auto 100 /uL (0-450); Eosinophils Percent Auto 1.3 % (2-4); Hematocrit 30.1 % (41-53); Hemoglobin 10.1 g/dL (13.5-17.5); Lymphocytes Absolute Auto 1200 /uL (1100-4500); Lymphocytes Percent Auto 16.9 % (25-40); Mean Corpuscular HGB Conc 33.5 % (30-36); Mean Corpuscular Hemoglobin 30.4 PG (26-34); Mean Corpuscular Volume 90.5 fL (80-100); Monocytes Absolute Auto 900 /uL (0-900); Monocytes Percent Auto 12.6 % (3-14); Neutrophils Absolute Auto 5000 /uL (1500-7000); Neutrophils Percent Auto 68.6 % (50-75); Platelet Count 267 X10^3/uL (150-400); Red Blood Cell Count 3.33 X10^6/uL (4.5-5.9); Red Cell Distribution Width 15.8 % (11.6-14.8); White Blood Cell Count 7.3 X10^3/uL (4.5-11.0)
[2023-07-28 18:17] LABS: Alanine Aminotransferase 31 IU/L (<50); Albumin 3.5 g/dL (3.5-5.0); Albumin Globulin Ratio 1.1 (1.0-2.8); Alkaline Phosphatase 251 U/L (38-126); Aspartate Aminotransferase 27 IU/L (17-59); Bilirubin Total 0.5 mg/dL (0.2-1.3); Blood Urea Nitrogen 20 mg/dL (9-20); C-Reactive Protein Quant 4.3 mg/dL (<1.0); Calcium 8.7 mg/dL (8.4-10.2); Carbon Dioxide 23 mmol/L (22-32); Chloride 98 mmol/L (98-107); Estimated Glomerular Filt Rate > 60 mL/min (>60); Globulin 3.2 g/dL (1.7-4.1); Glucose 104 mg/dL (80-110); HEMOLYSIS < 15 (0-50); Magnesium 1.5 mg/dL (1.6-2.3); Phosphorous 3.6 mg/dL (2.3-3.7); Potassium 3.4 mmol/L (3.4-5.1); Sodium 133 mmol/L (137-145); Total Protein 6.7 g/dL (6.3-8.2); Triglycerides 111 mg/dL (35-150)
[2023-07-28 18:22] LABS: Prealbumin 22.7 mg/dL (17.6-36.0)
== END ==
PROVIDERS: PCP Internal Medicine; Visit Provider Internal Medicine
DX: K31.1 Adult hypertrophic pyloric stenosis (principal); K31.5 Obstruction of duodenum; D49.4 Neoplasm of unspecified behavior of bladder
CPT/HCPCS: 80053; 83735; 84100; 84134; 84478; 85025; 86140